=== PATIENT | female | born 1985 | race African-American/Black ===

== ENCOUNTER 2024-07-19 03:49 | Day surgery (SDC) | payer OTHER ==
[2024-07-16 12:41] VITALS: BMI 29.6
[2024-07-19] MEDS ORDERED: ONDANSETRON 4 MG/2 ML VIAL ONE (07:49)
[2024-07-19] MEDS ORDERED: DEXAMETHASONE SOD PHOSPHATE 4 MG/1 ML VIAL ONE (07:49)
[2024-07-19] MEDS ORDERED: SUCCINYLCHOLINE CHLORIDE 200 MG/10 ML SYRINGE ONE (07:50)
[2024-07-19] MEDS ORDERED: ROCURONIUM BROMIDE 50 MG/5 ML SYRINGE ONE ×2 (07:50→09:08)
[2024-07-19] MEDS ORDERED: MIDAZOLAM HCL 2 MG/2 ML SINGLE DOSE VIAL ONE (07:50)
[2024-07-19] MEDS ORDERED: PROPOFOL 40 ML ONE (07:50)
[2024-07-19] MEDS: ceFAZolin SODIUM 1 GM VIAL IVPB ONE (08:40)
[2024-07-19] MEDS ORDERED: SUGAMMADEX SODIUM 200 MG/2 ML VIAL ONE (09:47)
[2024-07-19] MEDS ORDERED: ONDANSETRON 4 MG/2 ML VIAL IVPUSH PRN (10:07)
[2024-07-19] MEDS ORDERED: LACTATED RINGERS SOLUTION 1,000 ML IV SCH (10:15)
[2024-07-19 11:49] VITALS: RESP 16
[2024-07-19 12:19] VITALS: TEMP 97.5
[2024-07-19 12:48] VITALS: BP 130/79; PULSE 71
== END 2024-07-19 13:10 | disposition home or self-care (01) ==
LOC: JASU-SURG 03:49
PROVIDERS: ATTEND Obstetrics & Gynecology
PROC: 0UB04ZZ Excision of Right Ovary, Percutaneous Endoscopic Approach (ICD-10-PCS; principal; 2024-07-19 07:45)
PROC: 8E0W4CZ Robotic Assisted Procedure of Trunk Region, Percutaneous Endoscopic Approach (ICD-10-PCS; 2024-07-19 07:45)
PROC: 0UDB8ZX Extraction of Endometrium, Via Natural or Artificial Opening Endoscopic, Diagnostic (ICD-10-PCS; 2024-07-19 07:45)
DX: N83.01 Follicular cyst of right ovary (principal); N84.0 Polyp of corpus uteri; D25.0 Submucous leiomyoma of uterus
CPT/HCPCS: 58558; 58559; 58662; S2900; 81025; 86850; 86900; 86901; 88305-TC